=== PATIENT | female | born 2000 | race Caucasian/White ===

== ENCOUNTER 2019-08-06 10:33 | Emergency (ER) | payer OTHER ==
[2019-08-06 11:06] VITALS: BP 130/77; PULSE 103; TEMP 98.2; BMI 29.2
[2019-08-06] MEDS ORDERED: KETOROLAC TROMETHAMINE 30 MG/1 ML VIAL IM ONE (11:59)
--- NOTE | 2019-08-06 11:59 | PDOC ---
History of Present Illness - General Chief Complaint: Cold Symptoms Stated Complaint: flu Symptoms Time Seen by Provider: 08/06/19 11:18 History Source: Patient Exam Limitations: No Limitations Past History - Travel Traveled outside of the country in the last 30 days: No Close contact w/someone who was outside of country & ill: No - Past Medical History Allergies/Adverse Reactions: Allergies Allergy/AdvReac Type Severity Reaction Status Date / Time No Known Allergies Allergy Verified 08/06/19 11:02 Home Medications: Ambulatory Orders Ibuprofen 600 mg PO Q6H #30 tablet 08/06/19 Ondansetron [Zofran Odt -] 4 mg SL TID #10 od.tablet 08/06/19 Oseltamivir Phosphate [Tamiflu] 75 mg PO BID #10 capsule 08/06/19 CVA: No COPD: No CHF: No DVT: No Dementia: No - Immunization History Immunization Up to Date: Yes - Psycho Social/Smoking Cessation Hx Smoking History: Never smoked Information on smoking cessation initiated: No Hx Alcohol Use: No Drug/Substance Use Hx: No Review of Systems - Review of Systems Able to Perform ROS?: Yes Comments:: 08/06/19 14:26 CONSTITUTIONAL: Present: Fever, chills, body aches Absent: diaphoresis, generalized weakness, malaise, loss of appetite HEENT: Present: rhinorrhea, nasal congestion, throat pain. Absent: difficulty swallowing, mouth swelling, ear pain, eye pain, visual Changes CARDIOVASCULAR: Absent: chest pain, loss of consciousness, palpitations, irregular heart rate, peripheral edema RESPIRATORY: Present: Cough Absent: shortness of breath, dyspnea with exertion, orthopnea, wheezing, stridor, hemoptysis GASTROINTESTINAL: Absent: abdominal pain, abdominal distension, nausea, vomiting, diarrhea, constipation, melena, hematochezia SKIN: Absent: rash, itching, pallor NEUROLOGIC: Present: headache Absent: focal weakness or paresthesias, dizziness, unsteady gait, seizure, mental status changes, bladder or bowel incontinence Is the patient limited Macanese proficient: No *Physical Exam - Vital Signs Last Vital Signs Temp Pulse Resp BP Pulse Ox 98.2 F 103 H 18 130/77 100 08/06/19 11:03 08/06/19 11:03 08/06/19 11:03 08/06/19 11:03 08/06/19 11:03 - Physical Exam 08/06/19 14:26 GENERAL: Well developed, well nourished. Awake and alert. No acute distress. HEENT: Normocephalic, atraumatic. PERRLA, EOMI. No conjunctival pallor. Sclera are non- icteric. Moist mucous membranes. Oropharynx is clear. NECK: Supple. Full ROM. No JVD. Carotid pulses 2+ and symmetric, without bruits. No thyromegaly. No lymphadenopathy. CARDIOVASCULAR: Regular rate and rhythm. No murmurs, rubs, or gallops. Distal pulses are 2+ and symmetric. PULMONARY: No evidence of respiratory distress. Lungs clear to auscultation bilaterally. No wheezing, rales or rhonchi. MUSCULOSKELETAL Normal range of motion at all joints. No bony deformities or tenderness. No CVA tenderness. EXTREMITIES: No cyanosis. No clubbing. No edema. No calf tenderness. SKIN: Warm and dry. Normal capillary refill. No rashes. No jaundice. NEUROLOGICAL: Alert, awake, appropriate. Cranial nerves 2-12 intact. No deficits to light touch and temperature in face, upper extremities and lower extremities. No motor deficits in the in face, upper extremities and lower extremities. Normoreflexic in the upper and lower extremities. Normal speech. Toes are down- going bilaterally. Gait is normal without ataxia. PSYCHIATRIC: Cooperative. Good eye contact. Appropriate mood and affect. Medical Decision Making - Medical Decision Making 08/06/19 14:26 Patient is a 19-year-old female with no past medical history, who presents to the ER with 2 days of flulike symptoms. She states that her boyfriend was recently in the emergency department and diagnosed with the flu and now she has similar symptoms. Admits to body aches, fevers, chills and headache. She has not taken anything for her symptoms at home. A/P: Flulike illness Exam is overall benign Given patient's boyfriend has the flu, will treat with Tamiflu at this time. Patient is within treatment window Discharge home with supportive therapy I discussed the physical exam findings, ancillary test results and final diagnoses with the patient. I answered all of the patient's questions. The patient was satisfied with the care received and felt comfortable with the discharge plan and treatment plan. The Patient agrees to follow up with the primary care physician/specialist within 24-72 hours. Return precautions were given. Discharge - Discharge Information Problems reviewed: Yes Clinical Impression/Diagnosis: Flu-like symptoms Condition: Stable Disposition: HOME - Admission No - Additional Discharge Information Prescriptions: Ibuprofen 600 mg PO Q6H #30 tablet Ondansetron [Zofran Odt -] 4 mg SL TID #10 od.tablet Oseltamivir Phosphate [Tamiflu] 75 mg PO BID #10 capsule - Follow up/Referral - Patient Discharge Instructions Patient Printed Discharge Instructions: DI for Influenza -- Adult Additional Instructions: You have the flu. This is a virus that will get better on its own in approximately 7-10 days. You will most likely have a fever for 7-10 days because of the flu. This is to be expected. Drink plenty of fluids to prevent dehydration and get plenty of rest. Warm tea and cough drops may help your symptoms as well. Take the tamiflu twice a day for 5 days to help reduce the symptoms of the flu. This medication will not cure the flu. Take Motrin as directed for pain and fever. Take all other medications as prescribed. Follow up with your primary care doctor this week Return to the ED for difficulty breathing, shortness of breath, weakness, or if you have any other changes in your symptoms. - Post Discharge Activity Work/Back to School Note: Back to Work
[2019-08-06] MEDS ORDERED: KETOROLAC TROMETHAMINE 30 MG/1 ML VIAL ONE (12:01)
== END 2019-08-06 12:17 | disposition home or self-care (01) ==
LOC: JERFT 10:33
PROC: 3E0233Z Introduction of Anti-inflammatory into Muscle, Percutaneous Approach (ICD-10-PCS; principal; 2019-08-06)
DX: J11.1 Influenza due to unidentified influenza virus with other respiratory manifestations (principal)
CPT/HCPCS: 99281-25

== ENCOUNTER 2020-05-22 10:12 | Emergency (ER) | payer OTHER ==
[2020-05-22 10:23] VITALS: BMI 30.2
--- OUTSIDE RECORDS SUMMARY | 2020-05-22 10:33 | XMS ---
:2000 Author Organization [facility] Support Name Relationship Address Phone FISHNES LINE Unavailable [address] [place] [address] SIERRA GRANT MOTHER [address] [place] [address] UE Unavailable Unavailable Unavailable MIHAELA GASCA SELF / SAME PATIENT [address] [facility] [place] [address] PALISADE PREP Unavailable Unavailable Unavailable DIMITRIOS SERRANO GP [address] [facility] [phone] [place] [address] PALISADE PREP. Unavailable Unavailable Unavailable SIERRA LOPEZ PA [address] [facility] [address] [place] [id number] SIERRA LOPEZ Unavailable [address] [phone] [place] [address] Re-disclosure Warning The records that you are about to access may contain information from federally- assisted alcohol or drug abuse programs. If such information is present, then the following federally mandated warning applies: This information has been disclosed to you from records protected by federal confidentiality rules (42 CFR part 2). The federal rules prohibit you from making any further disclosure of this information unless further disclosure is expressly permitted by the written consent of the person to whom it pertains or as otherwise permitted by 42 CFR part 2. A general authorization for the release of medical or other information is NOT sufficient for this purpose. The Federal rules restrict any use of the information to criminally investigate or prosecute any alcohol or drug abuse patient.The records that you are about to access may contain highly sensitive health information, the redisclosure of which is protected by Article 27-F of the [place] State Public Health law. If you continue you may haveaccess to information: Regarding HIV / AIDS; Provided by facilities licensed or operated by the [facility] Office of Mental Health; or Provided by the [facility] Office for People With Developmental Disabilities. If such information is present, then the following [facility] mandated warning applies: This information has been disclosed to you from confidential records which are protected by state law. State law prohibits you from making any further disclosure of this information without the specific written consent of the person to whom it pertains, or as otherwise permitted by law. Any unauthorized further disclosure in violation of state law may result in a fine or intermediate sentence or both. A general authorization for the release of medical or other information is NOT sufficient authorization for further disclosure. Encounters Encounter Providers Location Date Indications Data Source(s ) Emergency H 04/16/2019 02:40:00 [facility] PM EDT - 04/16/2019 Miguelangel harper 04:42:00 PM EDT Patient discharged. Insurance Providers Payer name Policy type Policy ID Covered Covered constitution party's Policy P hemalatha / Coverage constitution party ID relationship to Bynum Inf ormation type bynum SHARON [id number] SP [id number] HEALTH NON CAP SELF PAY SP INSURANCE [facility] CARE W [id number] [facility] CARE W [id number] [place] Problems, Conditions, and Diagnoses Code Display Name Description Problem Type Effective Dates Data Source(s) J02.9 Acute pharyngitis, ACUTE PHARYNGITIS, Diagnosis 9 [facility] unspecified UNSPECIFIED 02:40:00 PM EDT [facility] Social History Code Duration Value Status Description Data Source(s ) Smoking 04/16/2019 Denies Ever completed Denies Ever Smoked [facility] 03:10:00 PM EDT [facility] Smoking 04/16/2019 Denies Ever completed Denies Ever Smoked [facility] 02:56:00 PM EDT [facility] Smoking 04/16/2019 Denies Ever completed Denies Ever Smoked [facility] 02:47:00 PM EDT [facility] enter Vital Signs ID Date Data Source UNK Name Value Range Interpretation Code Description Data Source(s) Body temperature 36.020680 [id number] [facility] Respiratory rate 17 /min 17 /min [facility] Oxygen saturation 98 % 98 % [facility] in Ar[facility] blood [facility] by Pulse oximetry Heart rate 74 /min 74 /min [facility] Diastolic blood 89 mm[Hg] 89 mm[Hg] [facility] pressure [facility] Center Systolic blood 140 mm[Hg] 140 mm[Hg] [facility] pressure [facility]
[2020-05-22] MEDS ORDERED: METOCLOPRAMIDE HCL INJECTION 10 MG/2 ML VIAL IVPB ONE (11:02)
[2020-05-22] MEDS ORDERED: SODIUM CHLORIDE 1,000 ML IV STA (11:02)
--- NOTE | 2020-05-22 11:11 | PDOC ---
History of Present Illness - General Chief Complaint: Nausea/Vomiting Stated Complaint: VOMITING/POS PREG Time Seen by Provider: 05/22/20 10:32 History Source: Patient Exam Limitations: Clinical Condition - History of Present Illness Initial Comments: 05/22/20 11:07 Patient with no significant past medical history G1, P0 LMP April 17 present with complaint of nausea, vomiting, unable to keep any food down and malaise. Patient reports she is scheduled for termination of tomorrow at [facility]. Patient estimated to be 3 weeks from her LMP. De nies vaginal bleeding, dysuria, burning with urination, fever, chills. Denies any other symptoms Is this a multiple visit Asthma Patient?: No Timing/Duration: other (3 day) Past History - Medical History Allergies/Adverse Reactions: Allergies Allergy/AdvReac Type Severity Reaction Status Date / Time No Known Allergies Allergy Verified 05/22/20 10:19 Home Medications: Ambulatory Orders Ibuprofen 600 mg PO Q6H #30 tablet 08/06/19 Ondansetron [Zofran *Odt*] 4 mg SL Q8H PRN #21 od.tablet 05/22/20 CVA: No COPD: No CHF: No DVT: No Dementia: No - Reproductive History Is Patient Now?: Yes (#): 1 Para: 0 Therapeutic (s) & number: No - Immunization History Immunization Up to Date: Yes - Psycho-Social/Smoking History Smoking History: Never smoked Have you smoked in the past 12 months: No - Substance Abuse Hx (Audit-C & DAST Scrn) How often the patient has a drink containing alcohol: Never Score: In Men: 4 or > Positive; In Women: 3 or > Positive: 0 Screen Result (Pos requires Nsg. Audit-10AR): Negative In the last yr the pt used illegal drug/Rx for NonMed reason: No Score: Yes response is considered Positive: 0 Screen Result (Positive result requires Nsg. DAST-10): Negative Review of Systems - Review of Systems Able to Perform ROS?: Yes Is the patient limited Bolivian proficient: No Constitutional: No: Chills, Fever, Malaise HEENTM: No: Symptoms Reported, See HPI, Eye Pain, Blurred Vision, Tearing, Recent change in vision, Double Vision, Cataracts, Ear Pain, Ocular Prothesis, Ear Discharge, Nose Pain, Nose Congestion, Tinnitus, Nose Bleeding, Hearing Loss, Throat Pain, Throat Swelling, Mouth Pain, Dental Problems, Difficulty Swallowing, Mouth Swelling, Other Respiratory: No: Symptoms reported, See HPI, Cough, Orthopnea, Shortness of Breath, SOB with Exertion, SOB at Rest, Stridor, Wheezing, Productive cough, Hemoptysis, Other Cardiac (ROS): No: Symptoms Reported, See HPI, Chest Pain, Edema, Irregular Heart Rate, Lightheadedness, Palpitations, Syncope, Chest Tightness, Other ABD/GI: Yes: Symptoms Reported, See HPI, Nausea, Vomiting. No: Abd. Pain w/ defecation, Blood Streaked Bowels, Constipated, Diarrhea, Difficulty Swallowing, Indigestion, Abdominal cramping Musculoskeletal: No: Symptoms Reported Integumentary: No: Symptoms Reported Neurological: No: Symptoms reported, Headache, Dizziness All Other Systems: Reviewed and Negative *Physical Exam - Vital Signs Last Vital Signs Temp Pulse Resp BP Pulse Ox 98.8 F 69 18 109/55 L 100 05/22/20 10:19 05/22/20 10:19 05/22/20 10:19 05/22/20 10:19 05/22/20 10:19 - Physical Exam 05/22/20 11:10 GENERAL: Well developed, well nourished. Awake and alert. No acute distress. NECK: Supple. Full ROM. CARDIOVASCULAR: Regular rate and rhythm. No murmurs, rubs, or gallops. PULMONARY: No evidence of respiratory distress. Lungs clear to auscultation bilaterally. No wheezing, rales or rhonchi. ABDOMINAL: Soft. Non-tender. Non-distended. No rebound or guarding. No organomegaly. Normoactive bowel sounds. MUSCULOSKELETAL Normal range of motion at all joints. SKIN: Warm and dry. Normal capillary refill. No rashes. No jaundice. No cyanosis NEUROLOGICAL: Alert, awake, appropriate. Gait is normal without ataxia. PSYCHIATRIC: Cooperative. Good eye contact. Appropriate mood General Appearance: Yes: Nourished, Appropriately Dressed. No: Apparent Distress ED Treatment Course - LABORATORY CBC & Chemistry Diagram: 05/22/20 11:30 Medical Decision Making - Medical Decision Making 05/22/20 11:09 Patient with no significant past medical history G1, P0 LMP April 17 present with complaint of nausea, vomiting, unable to keep any food down and malaise. Patient reports she is scheduled for termination of tomorrow at [facility]. Patient estimated to be 3 weeks from her LMP. Denies vaginal bleeding, dysuria, burning with urination, fever, chills. Denies any other symptoms Patient in no acute distress on exam. Normal cardio lung exam. No abdominal tenderness on exam. No vaginal bleed on exam. Patient symptoms likely nausea and vomiting . UA, urine hCG ordered to rule out cystitis. CBC and beta-hCG lab ordered. IV hydration with 1 L normal saline and Reglan 10 mg IV ordered for nausea and vomiting . Treat based on lab result 05/22/20 12:35 CBC normal and UA shows no leukocytosis or WBCs. Patient reported improvement of symptoms. Patient stable for discharge with follow-up tomorrow with [facility] for termination of Discharge - Discharge Information Problems reviewed: Yes Clinical Impression/Diagnosis: Nausea and vomiting during Condition: Stable Disposition: HOME - Admission No - Additional Discharge Information Prescriptions: Ondansetron [Zofran *Odt*] 4 mg SL Q8H PRN #21 od.tablet PRN Reason: nausea - Follow up/Referral Referrals: Srini Taylor MD [Primary Care Provider] - - Patient Discharge Instructions Patient Printed Discharge Instructions: Common Discomforts and Bodily Changes During Additional Instructions: Your blood work is normal. Take prescribed medication as needed for nausea and vomiting. Increase fluid intake. Follow-up in [facility] as scheduled tomorrow - Post Discharge Activity
[2020-05-22] MEDS ORDERED: METOCLOPRAMIDE HCL INJECTION 10 MG/2 ML VIAL ONE (11:13)
[2020-05-22 11:38] LABS: PH,URINE 6.5 (5.0-8.0); URINE APPEARANCE CLEAR; URINE BILIRUBIN NEGATIVE (NEGATIVE); URINE COLOR YELLOW; URINE GLUCOSE (UA) NEGATIVE (NEGATIVE); URINE KETONE 1+ (NEGATIVE); URINE LEUK ESTERASE NEGATIVE (NEGATIVE); URINE NITRITE NEGATIVE (NEGATIVE); URINE PROTEIN NEGATIVE (NEGATIVE); URINE UROBILINOGEN 0.2 mg/dL (0.2-1.0)
[2020-05-22 11:38] LABS: BASO % 0.8 % (0-2.0); EOS % 0.6 % (0-4.5); HEMATOCRIT 39.2 % (32.4-45.2); HEMOGLOBIN 13.2 GM/dL (10.7-15.3); LYMPH % 27.3 % (8-40); MCH 30.8 pg (25.7-33.7); MCHC 33.8 g/dl (32.0-36.0); MEAN CELL VOLUME 91.3 fl (80-96); MEAN PLT VOLUME 7.5 fl (7.5-11.1); MONO % 7.4 % (3.8-10.2); NEUT % 63.9 % (42.8-82.8); PLATELET COUNT 362 K/MM3 (134-434); RBC 4.29 M/mm3 (3.60-5.2); RDW 14.8 % (11.6-15.6); WHITE BLOOD COUNT 6.9 K/mm3 (4.0-10.0)
[2020-05-22 12:30] VITALS: BP 110/62; PULSE 70; TEMP 98.6
== END 2020-05-22 12:31 | disposition home or self-care (01) ==
LOC: JER 10:12
PROC: 3E033GC Introduction of Other Therapeutic Substance into Peripheral Vein, Percutaneous Approach (ICD-10-PCS; principal; 2020-05-22)
PROC: 3E0337Z Introduction of Electrolytic and Water Balance Substance into Peripheral Vein, Percutaneous Approach (ICD-10-PCS; 2020-05-22)
DX: O21.0 Mild hyperemesis gravidarum (principal)
CPT/HCPCS: 36415; 81003; 84702; 85025; 87086; 99284-25

== ENCOUNTER 2021-07-05 09:37 | Emergency (ER) | payer OTHER ==
[2021-07-05 09:49] VITALS: BP 125/70; PULSE 79; TEMP 98.6; BMI 31.2
== END 2021-07-05 14:06 | disposition home or self-care (01) ==
LOC: JER 09:37
DX: R09.81 Nasal congestion (principal); R09.82 Postnasal drip; Z11.52 Encounter for screening for COVID-19
CPT/HCPCS: 99283-25; C9803; U0003; U0005

== ENCOUNTER 2023-02-10 08:34 | Emergency (ER) | payer OTHER ==
[2023-02-10 08:47] VITALS: BP 118/73; PULSE 102; RESP 17; TEMP 101.9; BMI 30.2
[2023-02-10] MEDS ORDERED: IBUPROFEN 600 MG TABLET (FP) PO ONE ×2 (09:15→09:21)
== END 2023-02-10 11:23 | disposition home or self-care (01) ==
LOC: JERFT 08:34
DX: R50.9 Fever, unspecified (principal); M79.10 Myalgia, unspecified site; J02.0 Streptococcal pharyngitis
CPT/HCPCS: 87070; 87077; 87651; 99283-25

== ENCOUNTER 2023-06-14 02:05 | Emergency (ER) | payer OTHER ==
[2023-06-14 02:18] VITALS: BP 102/65; PULSE 89; RESP 18; TEMP 98.6; BMI 30.2
[2023-06-14] MEDS ORDERED: DIPHTH,PERTUSS(ACELL),TET 0.5 ML DISP.SYRIN IM ONE (02:21)
== END 2023-06-14 03:36 | disposition home or self-care (01) ==
LOC: JER 02:05
PROC: 0HQ0XZZ Repair Scalp Skin, External Approach (ICD-10-PCS; principal; 2023-06-14)
DX: R55 Syncope and collapse (principal); R42 Dizziness and giddiness; S01.01XA Laceration without foreign body of scalp, initial encounter; F12.10 Cannabis abuse, uncomplicated; W01.198A Fall on same level from slipping, tripping and stumbling with subsequent striking against other object, initial encounter
CPT/HCPCS: 70450-TC; 72125-TC; 93005; 93010; 99284-25

== ENCOUNTER 2023-11-16 08:47 | Emergency (ER) | payer OTHER ==
[2023-11-16 09:02] VITALS: BP 104/64; PULSE 82; RESP 18; TEMP 97.6; BMI 30.2
[2023-11-16] MEDS ORDERED: AMOXICILLIN 250 MG CAPSULE ONE (10:00)
[2023-11-16] MEDS ORDERED: IBUPROFEN 600 MG TABLET (FP) PO ONE (10:01)
[2023-11-16] MEDS: AMOXICILLIN 500 MG CAPSULE (FP) PO ONE (10:02)
[2023-11-16] MEDS: IBUPROFEN 600 MG TABLET (FP) PO ONE (10:03)
== END 2023-11-16 10:04 | disposition home or self-care (01) ==
LOC: JERFT 08:47 → JER 08:47 → JERFT 10:04
DX: H92.02 Otalgia, left ear (principal); H66.92 Otitis media, unspecified, left ear; H60.92 Unspecified otitis externa, left ear
CPT/HCPCS: 99283-25